=== PATIENT | female | born 1980 | race Caucasian/White ===

== ENCOUNTER 2020-09-30 07:39 | Day surgery (SDC) | payer OTHER ==
[2020-09-25 11:28] LABS: HEMATOCRIT 36.1 % (36.0-47.0); HEMOGLOBIN 12.3 g/dL (12.0-15.5); MEAN CORPUSCULAR HEMOGLOBIN 29.1 pg (27.0-33.4); MEAN CORPUSCULAR HGB CONC 34.1 g/dL (32.0-36.0); MEAN CORPUSCULAR VOLUME 85 fl (80-97); PLATELET COUNT 274 10^3/uL (150-450); RED BLOOD COUNT 4.23 10^6/uL (3.72-5.28); RED CELL DISTRIBUTION WIDTH 13.8 % (11.5-14.0); WHITE BLOOD COUNT 5.9 10^3/uL (4.0-10.5)
[2020-09-25 11:34] LABS: APPEARANCE,URINE CLEAR; BILIRUBIN,URINE NEGATIVE (NEGATIVE); COLOR,URINE YELLOW; GLUCOSE, URINE NEGATIVE (NEGATIVE); KETONES,URINE NEGATIVE (NEGATIVE); LEUKOCYTE ESTERASE,URINE NEGATIVE (NEGATIVE); NITRITE,URINE NEGATIVE (NEGATIVE); PROTEIN,URINE NEGATIVE (NEGATIVE); URINE SPECIFIC GRAVITY 1.017; UROBILINOGEN,URINE NEGATIVE mg/dL (<2.0)
[~2020-09-30 07:39] MED LIST: CEFAZOLIN 1 GM/D5W RTU 1 GM/50 ML RTUPB IV PRN; EPHEDRINE SULFATE INJ 50 MG/1 ML AMPULE ONE; FENTANYL CITRATE INJ/PF 100 MCG/2 ML AMPUL ONE; HYDROMORPHONE HCL INJ/PF 2 MG/ML AMPULE ONE; LACTATED RINGERS 1000 ML IV PRN; LIDOCAINE 0.5% INJ-PF (5 MG/ML) 50 ML SDV SUBCUT PRN; MIDAZOLAM 2 MG/2 ML INJ ONE; PROPOFOL INJ 200 MG/20 ML VIAL IV ONE; SUGAMMADEX SODIUM 200 MG/2 ML SDV IV ONE
[2020-09-30] MEDS ORDERED: CEFAZOLIN 1 GM/D5W RTU 1 GM/50 ML RTUPB IV ONE (08:56)
[2020-09-30] MEDS ORDERED: MORPHINE SULFATE 10 MG/ML INJ IV PRN (09:32)
[2020-09-30] MEDS ORDERED: DIPHENHYDRAMINE HCL 50 MG/ML VIAL IV PRN (09:32)
[2020-09-30] MEDS ORDERED: FENTANYL CITRATE INJ/PF 100 MCG/2 ML AMPUL IV PRN ×3 (09:32)
[2020-09-30] MEDS ORDERED: MEPERIDINE HCL/PF INJ 25 MG/1 ML DISP.SYRIN IV PRN (09:32)
[2020-09-30] MEDS ORDERED: PROMETHAZINE HCL INJ 25 MG/1 ML VIAL IV PRN ×2 (09:32)
--- NOTE | 2020-09-30 10:25 | Operative Report ---
Operative Report DATE OF SURGERY: 09/30/20 PREOPERATIVE DIAGNOSIS: CATHERINE cystocele and rectocele POSTOPERATIVE DIAGNOSIS: Same OPERATION: TVT and A&P repair SURGEON: GARIMA SMITH ANESTHESIA: GA TISSUE REMOVED OR ALTERED: Vaginal mucosa COMPLICATIONS: None ESTIMATED BLOOD LOSS: Less than 25 cc PROCEDURE: Patient placed in a dorsolithotomy vision prepped draped sterile fashion. The vaginal Koza was grasped centimeter below the urethra entered with sharp dissection approximately 1 to 2 cm. Underlying vesicovaginal tissue was then bluntly sharply divided to the posterior aspect of the symphysis could be palpated. 2 puncture wounds were made above the symphysis 1 cm lateral to the midline the cam sling needles were passed down from the puncture wounds through the vaginal defect. Cystoscopy then performed with no foreign bodies being noted. Mely sling was then placed on the ends of the needles and pulled back through and a pair of Linares scissors were kept under urethra for tension-free placement. The excess tape was severed at the skin line and the puncture was closed using surgical glue. The vaginal defect was closed with a running 2-0 Vicryl. Anterior repair was then accomplished by grasping the vaginal Koza slightly below the previous incision and divided in the midline to just above the cervix. Underlying vesicovaginal tissue was bluntly sharply divided. The vesicovaginal tissues then plicated midline using multiple 2-0 Vicryl. Excessive vaginal mucosa was then excised and the vaginal defect closed with 2-0 Vicryl. Posterior repair was then accomplished by grasping the vaginal mucosa at the remnants of the hymenal ring. Tissue was then excised between the 2 in a crosswise fashion. Vaginal tissue was then divided in the midline to just below the cervix. Underlying rectovaginal tissue was bluntly sharply divided. Vaginal tissue was then plicated with multiple 2-0 Vicryl in the midline. Excessive vaginal mucosa was removed and the vaginal defect closed with 2-0 Vicryl. Hemostasis was noted in the vagina was packed with a moistened pack. Her urine may clear without procedures taken recovery room good condition.
[2020-09-30] MEDS ORDERED: HYDROMORPHONE HCL 2 MG TABLET PO PRN (10:55)
[2020-09-30] MEDS ORDERED: ONDANSETRON HCL 8 MG TABLET PO PRN (10:55)
[2020-09-30] MEDS ORDERED: FENTANYL CITRATE INJ/PF 100 MCG/2 ML AMPUL ONE (10:55)
[2020-09-30] MEDS ORDERED: IBUPROFEN 800 MG TABLET PO SCH (14:00)
[2020-09-30] MEDS ORDERED: ROCURONIUM BROMIDE INJ 50 MG/5 ML VIAL IV ONE (15:11)
[2020-09-30] MEDS ORDERED: SUCCINYLCHOLINE CHLORIDE INJ 200 MG/10 ML VIAL ONE (15:11)
[2020-09-30] MEDS ORDERED: DEXAMETHASONE SOD PHOSPHATE INJ 4 MG/1 ML VIAL ONE (15:11)
[2020-09-30] MEDS ORDERED: METOCLOPRAMIDE HCL INJ/PF 10 MG/2 ML SDV ONE (15:11)
[2020-09-30] MEDS ORDERED: KETOROLAC TROMETHAMINE 60 MG/2 ML SDV ONE (15:11)
[2020-09-30] MEDS ORDERED: DIPHENHYDRAMINE HCL 50 MG/ML VIAL ONE (15:11)
[2020-09-30] MEDS ORDERED: ONDANSETRON HCL INJ/PF 4 MG/2 ML SDV ONE (15:11)
[2020-09-30 15:28] VITALS: BP 107/58
== END 2020-09-30 17:16 | disposition home or self-care (01) ==
LOC: OROUT 07:39 → 2N 11:32 → OROUT 17:16
PROVIDERS: ATTEND Obstetrics & Gynecology Gynecology
DX: N81.10 Cystocele, unspecified (principal); N81.6 Rectocele; N39.3 Stress incontinence (female) (male); Z01.812 Encounter for preprocedural laboratory examination; Z20.822 Contact with and (suspected) exposure to COVID-19; F17.200 Nicotine dependence, unspecified, uncomplicated; K21.9 Gastro-esophageal reflux disease without esophagitis; Z79.899 Other long term (current) drug therapy; Z90.710 Acquired absence of both cervix and uterus
CPT/HCPCS: 36415; 85027; 81001; 57260; 57288; U0003; J2250; J0690; J3490 ×2; J1100; J1200; J1885; J3010; J2765; J0330; J2405; J2704; C9803; 87635; 942; C1758; C1781; J1170